=== PATIENT | female | born 1985 | race Caucasian/White ===

== ENCOUNTER 2017-02-18 13:12 | Observation (INO) | payer BC ==
[2017-02-18] MEDS ORDERED: Sodium Chloride 0.9% 10 ML Syringe FLUSH PRN (14:02)
[2017-02-18] MEDS ORDERED: Lactated Ringers 1,000 ML IV SCH ×2 (14:15→15:00)
[2017-02-18] MEDS ORDERED: Nalbuphine 20 MG/1 ML Amp IVPUSH PRN (14:56)
[2017-02-18] MEDS ORDERED: Oxytocin/Lactated Ringers 10 UNIT/1,000 ML BAG IV SCH (14:56)
--- NOTE | 2017-02-18 15:01 | EDM.PDOC ---
ED HPI GENERAL MEDICAL PROBLEM - General Chief Complaint: DEPOSIT CLERK Problem Stated Complaint: 15 WEEKS PREG/BLEEDING AND CRAMPING Time Seen by Provider: 02/18/17 14:02 Source of Information: Reports: Patient, Family History Limitations: Reports: No Limitations - History of Present Illness INITIAL COMMENTS - FREE TEXT/NARRATIVE: The patient is at 15 weeks gestation. She presents with vaginal bleeding and cramping. At about 11 weeks she started having some vaginal bleeding and cramping. She saw her DEPOSIT CLERK doctor Dr Crowder in [place]. An US was done and there was a subchorionic bleed. She had another US done on the 09 of February and the fetus looked good. There was still the subchorionic hematoma. She started having some left lower quadrant pain and left pelvic pain just prior to arrival. She felt a gush of fluid when she was in the waiting room and when she was brought back to the room she had moderate bleeding and before I could come into the room she delivered the fetus and what appears to be an intact placenta. She has some bleeding now and cramping. She thinks she is A positive. Onset: Today Duration: Minutes: Location: Reports: Abdomen Quality: Reports: Sharp Severity: Moderate Improves with: Reports: None Worsens with: Reports: None Associated Symptoms: Reports: No Other Symptoms Lower Abdomen Pain Score (Numeric/FACES): 4 - Related Data Allergies Allergy/AdvReac Type Severity Reaction Status Date / Time No Known Allergies Allergy Verified 02/18/17 13:33 Home Meds: Home Meds Citalopram Hydrobromide [Celexa] 20 mg PO DAILY 02/18/17 [History] Pnv No.122/Iron/Folic Acid [ Multi Tablet] 1 tab PO DAILY 02/18/17 [ History] Past Medical History - Past Surgical History HEENT Surgical History: Reports: LASIK, Oral Surgery, Tonsillectomy Social & Family History - Tobacco Use Smoking Status *Q: Never Smoker - Caffeine Use Caffeine Use: Reports: None - Recreational Drug Use Recreational Drug Use: No ED ROS GENERAL - Review of Systems Review Of Systems: See Below Constitutional: Reports: No Symptoms HEENT: Reports: No Symptoms Respiratory: Reports: No Symptoms Cardiovascular: Reports: No Symptoms Endocrine: Reports: No Symptoms GI/Abdominal: Reports: Abdominal Pain : Reports: Other (Spontaneous ) ED EXAM, RENAL/ - Physical Exam Exam: See Below Exam Limited By: No Limitations General Appearance: Alert, No Apparent Distress Ears: Normal External Exam Nose: Normal Inspection Head: Atraumatic, Normocephalic Neck: Normal Inspection Respiratory/Chest: No Respiratory Distress, Lungs Clear, Normal Breath Sounds Cardiovascular: Regular Rate, Rhythm, No Edema, No Murmur GI/Abdominal: Soft, Non-Tender, No Organomegaly, No Mass Extremities: Normal Inspection Neurological: Alert, Oriented, No Motor/Sensory Deficits Course - Vital Signs Last Recorded V/S: Last Vital Signs Temp 97.3 F 02/18/17 13:30 Pulse 103 H 02/18/17 13:30 Resp 20 02/18/17 13:30 BP 142/84 H 02/18/17 13:30 Pulse Ox 97 02/18/17 13:30 - Orders/Labs/Meds Orders: Active Orders 24 hr Category Date Time Status Peripheral IV Care [RC] . DIRECTED Care 02/18/17 14:03 Active ABO/RH TYPE [BBK] Stat Lab 02/18/17 14:40 Received Lactated Ringers [Ringers, Lactated] 1,000 ml Med 02/18/17 14:15 Active IV ASDIRECTED Sodium Chloride 0.9% [Saline Flush] Med 02/18/17 14:02 Active 10 ml FLUSH ASDIRECTED PRN Peripheral IV Insertion Adult [OM.PC] Stat Oth 02/18/17 14:02 Ordered Medication Orders Lactated Ringer's (Ringers, Lactated) 1,000 mls @ 125 mls/hr IV ASDIRECTED WALTER Last Admin: 02/18/17 14:28 Dose: 125 mls/hr Sodium Chloride (Saline Flush) 10 ml FLUSH ASDIRECTED PRN PRN Reason: Keep Vein Open Last Admin: 02/18/17 14:28 Dose: 10 ml Meds: Medications Generic Name Dose Route Start Last Admin Trade Name Freq PRN Reason Stop Dose Admin Lactated Ringer's 1,000 mls @ 125 mls/hr 02/18/17 14:15 02/18/17 14:28 Ringers, Lactated IV 125 mls/hr ASDIRECTED WALTER Administration Sodium Chloride 10 ml 02/18/17 14:02 02/18/17 14:28 Saline Flush FLUSH 10 ml ASDIRECTED PRN Administration Keep Vein Open - Re-Assessments/Exams Free Text/Narrative Re-Assessment/Exam: 02/18/17 15:06 I ordered an IV LR at 125mL/hr and labs. I called Dr Croft and he wanted the patient admitted to labor and delivery and he will take care of her from there. Departure - Departure Time of Disposition: 15:10 Disposition: Home, Self-Care 01 Condition: Good Clinical Impression: Spontaneous - Discharge Information - My Orders Last 24 Hours: My Active Orders 02/18/17 14:02 Sodium Chloride 0.9% [Saline Flush] 10 ml FLUSH ASDIRECTED PRN Peripheral IV Insertion Adult [OM.PC] Stat 02/18/17 14:03 Peripheral IV Care [RC] . DIRECTED 02/18/17 14:15 Lactated Ringers [Ringers, Lactated] 1,000 ml IV ASDIRECTED 02/18/17 14:40 ABO/RH TYPE [BBK] Stat - Assessment/Plan Last 24 Hours: My Active Orders 02/18/17 14:02 Sodium Chloride 0.9% [Saline Flush] 10 ml FLUSH ASDIRECTED PRN Peripheral IV Insertion Adult [OM.PC] Stat 02/18/17 14:03 Peripheral IV Care [RC] . DIRECTED 02/18/17 14:15 Lactated Ringers [Ringers, Lactated] 1,000 ml IV ASDIRECTED 02/18/17 14:40 ABO/RH TYPE [BBK] Stat
--- NOTE | 2017-02-18 16:35 | PCM.SN ---
- Free Text/Narrative Note: Oryl is a 31-year-old 2 now para 03/1100 white female who is initially seen in the emergency room with complaints of uterine bleeding, cramps and while in the emergency room past what appears to be 15 week nonviable fetus. Also appears to have delivered placenta intact and complete. At this time the clamp and that she had before which was rather severe has now resolved and her bleeding is minimal. Symptoms consistent with incomplete passage of the . She is known to have bleeding over the last month. This started at about 8 weeks with vaginal bleeding which prompted an ultrasound which at 10 weeks showed a subchorionic hemorrhage. Bleeding persisted and worsened. Her initial ultrasound did show viable intrauterine which now would place her at approximately 15 weeks gestation. Her blood is O+. She is not a candidate for RhoGAM. Past medical history: 1. Normal spontaneous vaginal delivery at term approximate 2 years ago 2. Depression symptoms on medications 3. 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 Teeth extraction 2. Tonsillectomy and adenoidectomy age 10 Allergies none Medications: 1. vitamins 1 by mouth daily 2. Citalopram 20 mg daily 3. Vitamin D3 400 units daily 4. Glucosamine chondroitin 500 400 mg capsules daily Family history: is noncontributory. Social history: patient is , lives in [place]. 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 She denies any significant loss of alcohol, drugs or tobacco. Review of systems: In general patient appears to be doing well status post complete miscarriage at 15 weeks gestation. Emotionally she seems to be stable and excepting. She feels that this has been coming on and she has partially excepted prior to today. Skin: Negative Cardiovascular: Negative Respiratory: Negative Breasts: Negative GI: Normal : Bleeding as above Musculoskeletal: Negative Physical exam: In general patient is well-developed, well-nourished, pleasant female appears somewhat sad and is tearful at this time because of the series of events that have happened today. Vital signs are stable. Patient is afebrile. Exam is limited to the abdomen and pelvis abdomen is flat, soft, moderately overweight, nontender no apparent masses or organomegaly. Uterus is not palpated above the pubic bone at this time. Genital exam first sterile eye nightly and bimanual shows normal external genitalia with the exception of blood present she has blood in the vaginal vault. 2 small clots or approximate 10 mL are removed. Patient does not seem to be actively bleeding at the time. Bimanual exam shows uterus to be approximately 9 weeks size. Soft, nontender no apparent abnormalities in the adnexa noted. No parametrial induration is noted. Extremities and neurological exam are grossly within normal limits. Blood is O+ per record. Babies evaluated and appears to be a normal male appearing infant with no apparent malformations. Is appropriate size for dates. Attached with umbilical cord what appears to be an intact placenta which is normal in appearance other than a blood clot which is found attached to the chorionic surface of the placenta. This probably consistent with her history of subchorionic hemorrhage and her history of clinically of bleeding and cramping. My suspicion is that this resulted from an abruption of the placenta. Assessment: 1. 15 week complete spontaneous miscarriage with what appears to be complete passage of placenta and membranes. Patient clinically doing very well. She is grieving appropriately. 2. Patient is Rh+ therefore not a candidate for Rh immunoglobulin 3. Only apparent potential cause of this appears to be clot that is retroplacental nature and probably consistent with her subchorionic hemorrhage. My suspicion is that she had an abruptio placentae which may have been related to the subchorionic hemorrhage. Plan: 1. Patient is interested in being discharged. She is clinically very stable with no evidence of bleeding, cramping or retained products of conception. Appears to be grieving appropriately. 2. Patient is to follow-up with her physician Dr. Harjit Crowder at [facility] in [place] in 2 days as she has a scheduled appointment at that time for visit. 3. Patient will call if problems arise prior to that time.
--- NOTE | 2017-02-21 08:04 | PCM.DCSUM1 ---
Discharge Summary - Hospital Course Free Text/Narrative:: Orly is a 31-year-old 2 now para 03/1100 white female who is initially seen in the emergency room with complaints of uterine bleeding, cramps and while in the emergency room past what appears to be 15 week nonviable fetus. Also appears to have delivered placenta intact and complete. At this time the clamp and that she had before which was rather severe has now resolved and her bleeding is minimal. Symptoms consistent with incomplete passage of the . She is known to have bleeding over the last month. This started at about 8 weeks with vaginal bleeding which prompted an ultrasound which at 10 weeks showed a subchorionic hemorrhage. Bleeding persisted and worsened. Her initial ultrasound did show viable intrauterine which now would place her at approximately 15 weeks gestation. Her blood is O+. She is not a candidate for RhoGAM. Past medical history: 1. Normal spontaneous vaginal delivery at term approximate 2 years ago 2. Depression symptoms on medications 3. 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 Teeth extraction 2. Tonsillectomy and adenoidectomy age 10 Allergies none Medications: 1. vitamins 1 by mouth daily 2. Citalopram 20 mg daily 3. Vitamin D3 400 units daily 4. Glucosamine chondroitin 500 400 mg capsules daily Family history: is noncontributory. Social history: patient is , lives in [place]. 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 She denies any significant loss of alcohol, drugs or tobacco. Review of systems: In general patient appears to be doing well status post complete miscarriage at 15 weeks gestation. Emotionally she seems to be stable and excepting. She feels that this has been coming on and she has partially excepted prior to today. Skin: Negative Cardiovascular: Negative Respiratory: Negative Breasts: Negative GI: Normal : Bleeding as above Musculoskeletal: Negative Physical exam: In general patient is well-developed, well-nourished, pleasant female appears somewhat sad and is tearful at this time because of the series of events that have happened today. Vital signs are stable. Patient is afebrile. Exam is limited to the abdomen and pelvis abdomen is flat, soft, moderately overweight, nontender no apparent masses or organomegaly. Uterus is not palpated above the pubic bone at this time. Genital exam first sterile eye nightly and bimanual shows normal external genitalia with the exception of blood present she has blood in the vaginal vault. 2 small clots or approximate 10 mL are removed. Patient does not seem to be actively bleeding at the time. Bimanual exam shows uterus to be approximately 9 weeks size. Soft, nontender no apparent abnormalities in the adnexa noted. No parametrial induration is noted. Extremities and neurological exam are grossly within normal limits. Blood is O+ per record. Babies evaluated and appears to be a normal male appearing with no apparent malformations. Is appropriate size for dates. Attached with umbilical cord what appears to be an intact placenta which is normal in appearance other than a blood clot which is found attached to the chorionic surface of the placenta. This probably consistent with her history of subchorionic hemorrhage and her history of clinically of bleeding and cramping. My suspicion is that this resulted from an abruption of the placenta. Assessment: 1. 15 week complete spontaneous miscarriage with what appears to be complete passage of placenta and membranes. Patient clinically doing very well. She is grieving appropriately. 2. Patient is Rh+ therefore not a candidate for Rh immunoglobulin 3. Only apparent potential cause of this appears to be clot that is retroplacental nature and probably consistent with her subchorionic hemorrhage. My suspicion is that she had an abruptio placentae which may have been related to the subchorionic hemorrhage. Plan: 1. Patient is interested in being discharged. She is clinically very stable with no evidence of bleeding, cramping or retained products of conception. Appears to be grieving appropriately. 2. Patient is to follow-up with her physician Dr. Harjit Crowder at [facility] in [place] in 2 days as she has a scheduled appointment at that time for visit. 3. Patient will call if problems arise prior to that time. - Discharge Data Discharge Date: 02/18/17 Discharge Disposition: Home, Self-Care 01 Condition: Good - Patient Instructions Diet: Regular Diet as Tolerated Activity: As Tolerated Driving: Do Not Drive Showering/Bathing: May Shower (May take a bath) Notify Provider of: Fever, Increased Pain, Swelling and Redness, Nausea and/or Vomiting - Discharge Plan Home Medications: Home Meds Citalopram Hydrobromide [Celexa] 20 mg PO DAILY 02/18/17 [History] Pnv No.122/Iron/Folic Acid [ Multi Tablet] 1 tab PO DAILY 02/18/17 [ History] Patient Handouts: Miscarriage, [id number] Forms: ED Department Discharge Referrals: PCP,Not In Area [Primary Care Provider] - (Continue next schedule appointment with regular OBGYN. ) - Discharge Summary/Plan Comment DC Time >30 min.: No Discharge Summary/Plan Comment: See above dictation. - Patient Data Vitals - Most Recent: Last Vital Signs Temp 36.3 C 02/18/17 17:13 Pulse 103 H 02/18/17 13:30 Resp 18 02/18/17 17:13 BP 142/71 H 02/18/17 17:13 Pulse Ox 97 02/18/17 13:30 Weight - Most Recent: 120.656 kg Med Orders - Current: Current Medications Discontinued Medications Lactated Ringer's (Ringers, Lactated) 1,000 mls @ 125 mls/hr IV ASDIRECTED WALTER Last Admin: 02/18/17 14:28 Dose: 125 mls/hr Lactated Ringer's (Ringers, Lactated) 1,000 mls @ 150 mls/hr IV ASDIRECTED WALTER Oxytocin/Lactated Ringer's (Pitocin In Lr 10 Units/1,000 Ml) 10 unit in 1,000 mls @ 60 mls/hr IV TITRATE WALTER; 10 MUNITS/MIN PRN Reason: Protocol Last Admin: 02/18/17 16:00 Dose: 10 munits/min, 60 mls/hr Nalbuphine HCl (Nubain) 10 mg IVPUSH Q2HR PRN PRN Reason: Pain Sodium Chloride (Saline Flush) 10 ml FLUSH ASDIRECTED PRN PRN Reason: Keep Vein Open Last Admin: 02/18/17 14:28 Dose: 10 ml *Q Meaningful Use (DIS) - VTE *Q VTE Criteria *Q: - Stroke *Q Stroke Criteria *Q: - AMI *Q AMI Criteria *Q:
== END 2017-02-18 17:15 | disposition home or self-care (01) ==
LOC: JD.ED 13:12 → JD.OB 14:12
PROVIDERS: ADMIT Obstetrics & Gynecology; ATTEND Obstetrics & Gynecology
DX: O03.9 Complete or unspecified spontaneous abortion without complication (principal); F32.9 Major depressive disorder, single episode, unspecified; Z79.899 Other long term (current) drug therapy; Z90.89 Acquired absence of other organs; Z98.818 Other dental procedure status; Z67.40 Type O blood, Rh positive
CPT/HCPCS: 36415; 85025; 86900; 86901; J2590; J7050; J7120; 96365; 99284; 99285; G0378